=== PATIENT | male | born 2005 | race Caucasian/White ===

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

== ENCOUNTER 2023-06-26 13:00 | Emergency (ER) | payer OTHER ==
[2023-06-26 13:06] VITALS: BP 126/61; PULSE 68; RESP 18; TEMP 98.5; BMI 34.8
[2023-06-26 14:18] LABS: BASO % 0.7 % (0-2.0); EOS % 4.1 % (0-4.5); HEMATOCRIT 43.9 % (35.4-49); LYMPH % 7.5 % (8-40); MCH 31.3 pg (25.7-33.7); MCHC 34.2 g/dl (32.0-35.9); MEAN CELL VOLUME 91.3 fl (80-96); MEAN PLT VOLUME 8.8 fl (7.5-11.1); MONO % 5.8 % (3.8-10.2); NEUT % 81.9 % (42.8-82.8); PLATELET COUNT 204 10^3/uL (134-434); RBC 4.81 M/mm3 (4.00-5.60); RDW 13.4 % (11.9-15.9); WHITE BLOOD COUNT 7.3 K/mm3 (4.0-10.0)
[2023-06-26 14:54] LABS: POTASSIUM 4.1 mmol/L (3.5-5.1)
[2023-06-26 14:56] LABS: CALCIUM 9.3 mg/dL (8.5-10.1)
[2023-06-26 14:57] LABS: ALBUMIN 3.8 g/dl (3.4-5.0); BLOOD UREA NITROGEN 6.5 mg/dL (7-18)
[2023-06-26 15:00] LABS: BILIRUBIN,DIRECT 0.3 mg/dL (0.0-0.2); CREATININE 0.7 mg/dL (0.55-1.3)
[2023-06-26 15:02] LABS: BILIRUBIN,TOTAL 1.7 mg/dL (0.2-1); TOT PROT 7.2 g/dl (6.4-8.2)
[2023-06-26] MEDS ORDERED: ALBUTEROL SO4 2.5/IPRATROPIUM 0.5 INH SOL 3 ML VIAL.NEB. NEB ONE (18:11)
== END 2023-06-26 16:16 | disposition home or self-care (01) ==
LOC: JER 13:00
DX: R10.32 Left lower quadrant pain (principal); K52.9 Noninfective gastroenteritis and colitis, unspecified
CPT/HCPCS: 36415; 74177-TC; 80048; 80076; 85025; 99285-25

== ENCOUNTER 2023-06-28 23:40 | Observation (INO) | payer OTHER ==
[2023-06-28 23:47] VITALS: BMI 33.9
[2023-06-29] MEDS ORDERED: FAMOTIDINE 20 MG/50 ML IVPB 20 MG/50 ML MG IVPB ONE (00:43)
[2023-06-29] MEDS ORDERED: ACETAMINOPHEN INJECTION 100 ML IVPB ONE (00:43)
[2023-06-29] MEDS ORDERED: ONDANSETRON 4 MG/2 ML VIAL ONE ×3 (00:43→14:16)
[2023-06-29] MEDS ORDERED: MAG HYDROX/AL HYDROX/SIMETH 30 ML UNIT-DOSE CUP ONE (00:43)
[2023-06-29 00:56] LABS: HEMATOCRIT 43.9 % (35.4-49); HEMOGLOBIN 15.5 GM/dL (11.7-16.9); MCH 31.4 pg (25.7-33.7); MCHC 35.3 g/dl (32.0-35.9); MEAN CELL VOLUME 88.9 fl (80-96); MEAN PLT VOLUME 8.2 fl (7.5-11.1); PLATELET COUNT 206 10^3/uL (134-434); RBC 4.94 M/mm3 (4.00-5.60); RDW 13.1 % (11.9-15.9); WHITE BLOOD COUNT 8.1 K/mm3 (4.0-10.0)
[2023-06-29] MEDS: MAG HYDROX/AL HYDROX/SIMETH 30 ML UNIT-DOSE CUP PO ONE (01:02)
[2023-06-29] MEDS: ONDANSETRON 4 MG/2 ML VIAL IVPUSH ONE (01:02)
[2023-06-29] MEDS: FAMOTIDINE 20 MG/50 ML IVPB 20 MG/50 ML MG IVPB ONE (01:02)
[2023-06-29] MEDS: SODIUM CHLORIDE 0.9% 500 ML INFUS.BAG IV ONE (01:02)
[2023-06-29] MEDS: ACETAMINOPHEN 1000 MG/100 ML BAG IVPB ONE (01:02)
[2023-06-29 01:21] LABS: EPI CELLS 18 /uL (0-25.1); HYALINE CASTS 3 /uL (0-3.1); URINE APPEARANCE CLEAR; URINE BACTERIA 0 /uL (0-1359); URINE BILIRUBIN 1+ (NEGATIVE); URINE COLOR DK YELLOW; URINE GLUCOSE (UA) NEGATIVE (NEGATIVE); URINE KETONE 4+ (NEGATIVE); URINE LEUK ESTERASE NEGATIVE (NEGATIVE); URINE NITRITE NEGATIVE (NEGATIVE); URINE PROTEIN 4+ (NEGATIVE); URINE RBC 36 /uL (0-23.9); URINE WBC 22 /uL (0-25.8)
[2023-06-29 01:22] LABS: POTASSIUM 3.8 mmol/L (3.5-5.1)
[2023-06-29 01:25] LABS: ALBUMIN 3.8 g/dl (3.4-5.0); BLOOD UREA NITROGEN 10.4 mg/dL (7-18); CALCIUM 9.4 mg/dL (8.5-10.1)
[2023-06-29 01:27] LABS: CREATININE 0.6 mg/dL (0.55-1.3)
[2023-06-29 01:30] LABS: BILIRUBIN,TOTAL 2.6 mg/dL (0.2-1); TOT PROT 7.4 g/dl (6.4-8.2)
[2023-06-29 01:36] LABS: INR 1.62 (0.83-1.09); PROTHROMBIN TIME (PATIENT) 18.7 SEC (9.7-13.0)
[2023-06-29 01:39] LABS: ACTIVATED PTT 36.8 SECONDS (25.2-36.5)
[2023-06-29 03:15] LABS: ANISOCYTOSIS 1+; MACROCYTOSIS 0
[2023-06-29 04:15] LABS: MAGNESIUM 2.1 mg/dL (1.8-2.4)
[2023-06-29 04:20] LABS: PHOSPHOROUS 2.2 mg/dL (2.5-4.9)
[2023-06-29] MEDS: SODIUM CHLORIDE 1,000 ML IV SCH (05:24)
[2023-06-29] MEDS: ONDANSETRON 4 MG/2 ML VIAL IVPUSH PRN (06:13)
[2023-06-29 07:26] LABS: BASO % 0.4 % (0-2.0); EOS % 0.7 % (0-4.5); HEMATOCRIT 41.4 % (35.4-49); HEMOGLOBIN 14.6 GM/dL (11.7-16.9); LYMPH % 6.4 % (8-40); MCH 31.6 pg (25.7-33.7); MCHC 35.3 g/dl (32.0-35.9); MEAN CELL VOLUME 89.5 fl (80-96); MEAN PLT VOLUME 8.9 fl (7.5-11.1); MONO % 6.7 % (3.8-10.2); NEUT % 85.8 % (42.8-82.8); PLATELET COUNT 196 10^3/uL (134-434); RBC 4.63 M/mm3 (4.00-5.60); RDW 13.2 % (11.9-15.9); WHITE BLOOD COUNT 7.6 K/mm3 (4.0-10.0)
[2023-06-29 07:45] LABS: CHLORIDE 104 mmol/L (98-107); POTASSIUM 3.7 mmol/L (3.5-5.1); SODIUM 138 mmol/L (136-145)
[2023-06-29 07:59] LABS: ANION GAP 8 mmol/L (4-13); BLOOD UREA NITROGEN 9.3 mg/dL (7-18); CALCIUM 8.9 mg/dL (8.5-10.1); CO2 26 mmol/L (21-32)
[2023-06-29 08:00] LABS: ALBUMIN 3.7 g/dl (3.4-5.0); GLUCOSE,RANDOM 92 mg/dL (74-106); MAGNESIUM 2.1 mg/dL (1.8-2.4)
[2023-06-29 08:02] LABS: PHOSPHOROUS 3.5 mg/dL (2.5-4.9)
[2023-06-29 08:03] LABS: CREATININE 0.5 mg/dL (0.55-1.3); SGOT/AST 28 U/L (15-37)
[2023-06-29 08:04] LABS: BILIRUBIN,TOTAL 2.3 mg/dL (0.2-1); SGPT/ALT 46 U/L (13-61); TOT PROT 6.9 g/dl (6.4-8.2)
[2023-06-29 08:10] LABS: ALK PHOS 121 U/L (45-117)
[2023-06-29 08:52] LABS: HIV INTERPRETATION NEGATIVE (NEGATIVE)
[2023-06-29] MEDS ORDERED: PANTOPRAZOLE SODIUM 40 MG VIAL ONE (11:41)
[2023-06-29] MEDS ORDERED: NAPH,MB-DB/K PH,MBDB POWDER PACKET ONE (11:41)
[2023-06-29 13:23] LABS: GAMMA GLUTAMYL TRANSPEPTIDASE 30 U/L (5-85)
[2023-06-29 13:26] LABS: BILIRUBIN,DIRECT 0.7 mg/dL (0.0-0.2)
[2023-06-29] MEDS: PANTOPRAZOLE SODIUM 40 MG VIAL IVPUSH SCH (14:00)
[2023-06-29] MEDS: NAPH,MB-DB/K PH,MBDB POWDER PACKET PO ONE (14:10)
[2023-06-29 14:47] LABS: METHADONE, UR NEGATIVE (NEGATIVE); OPIATES, URI NEGATIVE (NEGATIVE); PHENCYCLIDINE,URINE NEGATIVE (NEGATIVE); URINE BARBITURATES NEGATIVE (NEGATIVE)
[2023-06-29 14:48] LABS: COCAINE, UR NEGATIVE (NEGATIVE)
[2023-06-29 14:49] LABS: URINE AMPHETAMINES NEGATIVE (NEGATIVE); URINE BENZODIAZEPINES NEGATIVE (NEGATIVE)
[2023-06-30] MEDS: ACETAMINOPHEN 1000 MG/100 ML BAG IVPB PRN (03:00)
[2023-06-30 09:13] LABS: BASO % 0.6 % (0-2.0); EOS % 3.9 % (0-4.5); HEMATOCRIT 44.9 % (35.4-49); HEMOGLOBIN 15.5 GM/dL (11.7-16.9); LYMPH % 13.3 % (8-40); MCH 31.3 pg (25.7-33.7); MCHC 34.6 g/dl (32.0-35.9); MEAN CELL VOLUME 90.5 fl (80-96); MEAN PLT VOLUME 8.7 fl (7.5-11.1); MONO % 7.6 % (3.8-10.2); NEUT % 74.6 % (42.8-82.8); PLATELET COUNT 209 10^3/uL (134-434); RBC 4.97 M/mm3 (4.00-5.60); RDW 13.4 % (11.9-15.9)
[2023-06-30 09:44] LABS: POTASSIUM 4.1 mmol/L (3.5-5.1)
[2023-06-30 09:46] LABS: ALBUMIN 3.8 g/dl (3.4-5.0); BLOOD UREA NITROGEN 12.2 mg/dL (7-18); CALCIUM 8.9 mg/dL (8.5-10.1); MAGNESIUM 2.1 mg/dL (1.8-2.4)
[2023-06-30 09:50] LABS: CREATININE 0.7 mg/dL (0.55-1.3)
[2023-06-30] MEDS: KETOROLAC TROMETHAMINE 15 MG/ML VIAL IVPUSH PRN (11:43)
[2023-06-30] MEDS: PANTOPRAZOLE 20 MG TABLET PO SCH (14:28)
[2023-06-30 14:41] LABS: BILIRUBIN,DIRECT 1.3 mg/dL (0.0-0.2)
[2023-07-01 09:19] LABS: INR 1.61 (0.83-1.09); PROTHROMBIN TIME (PATIENT) 18.6 SEC (9.7-13.0)
[2023-07-01 09:26] LABS: BASO % 0.6 % (0-2.0); EOS % 5.2 % (0-4.5); HEMATOCRIT 44.9 % (35.4-49); HEMOGLOBIN 15.8 GM/dL (11.7-16.9); LYMPH % 6.7 % (8-40); MCH 31.7 pg (25.7-33.7); MCHC 35.1 g/dl (32.0-35.9); MEAN CELL VOLUME 90.1 fl (80-96); MEAN PLT VOLUME 8.5 fl (7.5-11.1); NEUT % 80.5 % (42.8-82.8); PLATELET COUNT 210 10^3/uL (134-434); RBC 4.98 M/mm3 (4.00-5.60); RDW 13.2 % (11.9-15.9); RETICULOCYTES 2.15 % (0.5-1.5); WHITE BLOOD COUNT 7.5 K/mm3 (4.0-10.0)
[2023-07-01 09:41] LABS: POTASSIUM 3.7 mmol/L (3.5-5.1)
[2023-07-01 09:42] LABS: CALCIUM 9.1 mg/dL (8.5-10.1)
[2023-07-01 09:44] LABS: ALBUMIN 3.8 g/dl (3.4-5.0); MAGNESIUM 2.3 mg/dL (1.8-2.4)
[2023-07-01 09:47] LABS: CREATININE 0.7 mg/dL (0.55-1.3)
[2023-07-01 09:48] LABS: BILIRUBIN,TOTAL 2.7 mg/dL (0.2-1); TOT PROT 7.2 g/dl (6.4-8.2)
[2023-07-01 12:23] LABS: BILIRUBIN,DIRECT 0.9 mg/dL (0.0-0.2)
[2023-07-01] MEDS: SUCRALFATE 1 GM TABLET (FP) PO SCH (14:00)
[2023-07-02 08:11] LABS: HEMATOCRIT 42.1 % (35.4-49); HEMOGLOBIN 14.6 GM/dL (11.7-16.9); MCH 31.3 pg (25.7-33.7); MCHC 34.6 g/dl (32.0-35.9); MEAN CELL VOLUME 90.3 fl (80-96); MEAN PLT VOLUME 8.7 fl (7.5-11.1); PLATELET COUNT 200 10^3/uL (134-434); RBC 4.66 M/mm3 (4.00-5.60); RDW 12.9 % (11.9-15.9)
[2023-07-02 08:23] LABS: INR 1.7 (0.83-1.09); PROTHROMBIN TIME (PATIENT) 19.6 SEC (9.7-13.0)
[2023-07-02 08:26] LABS: POTASSIUM 3.7 mmol/L (3.5-5.1)
[2023-07-02 08:38] LABS: ALBUMIN 3.4 g/dl (3.4-5.0); BLOOD UREA NITROGEN 15.8 mg/dL (7-18)
[2023-07-02 08:41] LABS: BILIRUBIN,DIRECT 0.6 mg/dL (0.0-0.2); CREATININE 0.6 mg/dL (0.55-1.3); TOT PROT 6.6 g/dl (6.4-8.2)
[2023-07-02 08:42] LABS: BILIRUBIN,TOTAL 1.9 mg/dL (0.2-1)
[2023-07-02 18:07] LABS: ALPHA-1-ANTITRYPSIN 199 mg/dL (95-164)
[2023-07-04 11:30] LABS: BASO % 0.7 % (0-2.0); HEMATOCRIT 41.1 % (35.4-49); HEMOGLOBIN 14.2 GM/dL (11.7-16.9); LYMPH % 6.4 % (8-40); MCH 30.8 pg (25.7-33.7); MCHC 34.6 g/dl (32.0-35.9); MEAN CELL VOLUME 88.9 fl (80-96); MEAN PLT VOLUME 9.1 fl (7.5-11.1); NEUT % 78.9 % (42.8-82.8); PLATELET COUNT 214 10^3/uL (134-434); RBC 4.63 M/mm3 (4.00-5.60); WHITE BLOOD COUNT 7.9 K/mm3 (4.0-10.0)
[2023-07-04 11:33] LABS: INR 1.66 (0.83-1.09); PROTHROMBIN TIME (PATIENT) 19.2 SEC (9.7-13.0)
[2023-07-04 11:53] LABS: POTASSIUM 3.2 mmol/L (3.5-5.1)
[2023-07-04 11:55] LABS: ALBUMIN 3.4 g/dl (3.4-5.0); CALCIUM 8.5 mg/dL (8.5-10.1)
[2023-07-04 11:56] LABS: BLOOD UREA NITROGEN 14.3 mg/dL (7-18)
[2023-07-04 11:58] LABS: CREATININE 0.6 mg/dL (0.55-1.3)
[2023-07-04 12:00] LABS: BILIRUBIN,TOTAL 1.5 mg/dL (0.2-1); TOT PROT 6.7 g/dl (6.4-8.2)
[2023-07-04] MEDS: POTASSIUM CHLORIDE TABS 20 MEQ TABLET.ER (FP) PO SCH (13:09)
[2023-07-04 14:40] VITALS: RESP 18
[2023-07-04] MEDS: LIDOCAINE 4% PATCH TP SCH (19:12)
[2023-07-04] MEDS: LIDOCAINE PATCH REMOVAL MC SCH (21:46)
[2023-07-05 09:29] LABS: HEMATOCRIT 37.9 % (35.4-49); HEMOGLOBIN 13.3 GM/dL (11.7-16.9); MCH 31.4 pg (25.7-33.7); MCHC 35.1 g/dl (32.0-35.9); MEAN CELL VOLUME 89.5 fl (80-96); MEAN PLT VOLUME 8.9 fl (7.5-11.1); PLATELET COUNT 201 10^3/uL (134-434); RBC 4.23 M/mm3 (4.00-5.60); RDW 12.8 % (11.9-15.9); WHITE BLOOD COUNT 6.1 K/mm3 (4.0-10.0)
[2023-07-05 09:45] LABS: POTASSIUM 3.4 mmol/L (3.5-5.1)
[2023-07-05 09:55] LABS: CALCIUM 8.8 mg/dL (8.5-10.1)
[2023-07-05 09:56] LABS: ALBUMIN 3.2 g/dl (3.4-5.0)
[2023-07-05 09:57] LABS: BLOOD UREA NITROGEN 12.3 mg/dL (7-18); CREATININE 0.6 mg/dL (0.55-1.3)
[2023-07-05 09:59] LABS: TOT PROT 6.1 g/dl (6.4-8.2)
[2023-07-05 10:01] LABS: BILIRUBIN,TOTAL 1.4 mg/dL (0.2-1)
[2023-07-05 14:52] VITALS: BP 129/62; PULSE 91; TEMP 98.1
[2023-07-05 14:53] LABS: EPI CELLS 5 /uL (0-25.1); HYALINE CASTS 1 /uL (0-3.1); URINE APPEARANCE CLEAR; URINE BACTERIA 3 /uL (0-1359); URINE BILIRUBIN 1+ (NEGATIVE); URINE COLOR DK YELLOW; URINE GLUCOSE (UA) NEGATIVE (NEGATIVE); URINE KETONE 1+ (NEGATIVE); URINE LEUK ESTERASE NEGATIVE (NEGATIVE); URINE NITRITE NEGATIVE (NEGATIVE); URINE PROTEIN 2+ (NEGATIVE); URINE RBC 21 /uL (0-23.9); URINE WBC 27 /uL (0-25.8)
[2023-07-08 07:10] LABS: FREE KAP CHN UR 278.15 mg/L (1.17-86.46); KAPPA LAMBDA RATIO URIN 3.85 (1.83-14.26)
== END 2023-07-05 16:22 | disposition home or self-care (01) ==
LOC: JER 23:40 → JERBED 06-29 03:01 → J8W 06-29 18:05
PROVIDERS: ADMIT Internal Medicine; ATTEND Nurse Practitioner Acute Care
PROC: 3E033GC Introduction of Other Therapeutic Substance into Peripheral Vein, Percutaneous Approach (ICD-10-PCS; principal; 2023-06-29)
PROC: 3E023NZ Introduction of Analgesics, Hypnotics, Sedatives into Muscle, Percutaneous Approach (ICD-10-PCS; 2023-06-29)
PROC: 3E0337Z Introduction of Electrolytic and Water Balance Substance into Peripheral Vein, Percutaneous Approach (ICD-10-PCS; 2023-06-29)
PROC: 0DB98ZX Excision of Duodenum, Via Natural or Artificial Opening Endoscopic, Diagnostic (ICD-10-PCS; 2023-07-01)
PROC: 0DB78ZX Excision of Stomach, Pylorus, Via Natural or Artificial Opening Endoscopic, Diagnostic (ICD-10-PCS; 2023-07-01)
PROC: 0DB68ZX Excision of Stomach, Via Natural or Artificial Opening Endoscopic, Diagnostic (ICD-10-PCS; 2023-07-01)
DX: K29.60 Other gastritis without bleeding (principal); K52.9 Noninfective gastroenteritis and colitis, unspecified; R16.1 Splenomegaly, not elsewhere classified; K62.89 Other specified diseases of anus and rectum; R80.9 Proteinuria, unspecified; R10.9 Unspecified abdominal pain; E80.6 Other disorders of bilirubin metabolism; R74.01 Elevation of levels of liver transaminase levels; R76.8 Other specified abnormal immunological findings in serum; E80.7 Disorder of bilirubin metabolism, unspecified; Z29.89 Encounter for other specified prophylactic measures
CPT/HCPCS: 36415; 71045-TC-FY; 74177-TC; 74181-TC; 76705-TC; 80053; 80076; 80307; 81003; 82103; 82248; 82272; 82550; 82728; 82977; 83010; 83516; 83540; 83550; 83605; 83615; 83690; 83735; 83883; 83993; 84100; 84156; 85025; 85027; 85045; 85384; 85610; 85651; 85730; 86038; 86140; 86704; 86706; 86708; 86709; 86803; 86850; 86870; 86880; 86900; 86901; 86902; 87040; 87045; 87046; 87086; 87209; 87324; 87340; 87389; 87449; 87517; 87798; 88305-TC; 88342-TC; 93005; 93010; 96365; 96372; 96375; 96376; 99285-25; G0378; J0131; Q9967

== ENCOUNTER 2023-07-15 14:37 | Emergency (ER) | payer OTHER ==
[2023-07-15 14:41] VITALS: RESP 18; TEMP 98.4; BMI 31.8
[2023-07-15] MEDS ORDERED: ACETAMINOPHEN INJECTION 100 ML IVPB ONE (15:25)
[2023-07-15] MEDS ORDERED: ONDANSETRON 4 MG/2 ML VIAL ONE (15:25)
[2023-07-15] MEDS ORDERED: FAMOTIDINE 20 MG/50 ML IVPB 20 MG/50 ML MG IVPB ONE (15:25)
[2023-07-15] MEDS: LACTATED RINGERS SOLUTION 1000 ML INFUS.BAG IV ONE (15:50)
[2023-07-15] MEDS: ACETAMINOPHEN 1000 MG/100 ML BAG IVPB ONE (15:50)
[2023-07-15] MEDS: FAMOTIDINE 20 MG/50 ML IVPB 20 MG/50 ML MG IVPB ONE (15:51)
[2023-07-15] MEDS: ONDANSETRON 4 MG/2 ML VIAL IVPUSH ONE (15:51)
[2023-07-15 15:57] LABS: BASO % 0.5 % (0-2.0); EOS % 2.2 % (0-4.5); HEMATOCRIT 41.6 % (35.4-49); HEMOGLOBIN 14.4 GM/dL (11.7-16.9); LYMPH % 11.8 % (8-40); MCH 30.8 pg (25.7-33.7); MCHC 34.7 g/dl (32.0-35.9); MEAN PLT VOLUME 8.4 fl (7.5-11.1); MONO % 8.3 % (3.8-10.2); NEUT % 77.2 % (42.8-82.8); PLATELET COUNT 199 10^3/uL (134-434); RBC 4.67 M/mm3 (4.00-5.60); RDW 13.4 % (11.9-15.9); WHITE BLOOD COUNT 5.1 K/mm3 (4.0-10.0)
[2023-07-15 16:16] LABS: POTASSIUM 3.9 mmol/L (3.5-5.1)
[2023-07-15 16:17] LABS: CALCIUM 9.4 mg/dL (8.5-10.1)
[2023-07-15 16:18] LABS: ALBUMIN 3.6 g/dl (3.4-5.0); BLOOD UREA NITROGEN 12.7 mg/dL (7-18); MAGNESIUM 2.2 mg/dL (1.8-2.4)
[2023-07-15 16:21] LABS: CREATININE 0.6 mg/dL (0.55-1.3)
[2023-07-15 16:22] LABS: BILIRUBIN,TOTAL 1.6 mg/dL (0.2-1); TOT PROT 6.9 g/dl (6.4-8.2)
[2023-07-15] MEDS ORDERED: PANTOPRAZOLE SODIUM 40 MG/100 ML BAG IVPB ONE (16:51)
[2023-07-15] MEDS: PANTOPRAZOLE SODIUM 40 MG VIAL IVPUSH ONE (16:58)
[2023-07-15 17:12] VITALS: BP 100/60; PULSE 74
== END 2023-07-15 17:12 | disposition home or self-care (01) ==
LOC: JER 14:37
PROC: 3E033GC Introduction of Other Therapeutic Substance into Peripheral Vein, Percutaneous Approach (ICD-10-PCS; principal; 2023-07-15)
PROC: 3E030NZ Introduction of Analgesics, Hypnotics, Sedatives into Peripheral Vein, Open Approach (ICD-10-PCS; 2023-07-15)
PROC: 3E030GC Introduction of Other Therapeutic Substance into Peripheral Vein, Open Approach (ICD-10-PCS; 2023-07-15)
PROC: 3E030GC Introduction of Other Therapeutic Substance into Peripheral Vein, Open Approach (ICD-10-PCS; 2023-07-15)
DX: R11.2 Nausea with vomiting, unspecified (principal); R10.9 Unspecified abdominal pain; K29.70 Gastritis, unspecified, without bleeding
CPT/HCPCS: 36415; 76700-TC; 80053; 83690; 83735; 85025; 99284-25; J0131

== ENCOUNTER 2024-03-30 19:03 | Emergency (ER) | payer OTHER ==
[2024-03-30 19:11] VITALS: BP 137/64; PULSE 71; RESP 18; TEMP 98.3; BMI 35.9
[2024-03-30] MEDS ORDERED: METOCLOPRAMIDE HCL INJECTION 10 MG/2 ML VIAL ONE (20:12)
[2024-03-30] MEDS ORDERED: ACETAMINOPHEN INJECTION 100 ML ONE (20:12)
[2024-03-30] MEDS: ACETAMINOPHEN 1000 MG/100 ML BAG IVPB ONE (20:25)
[2024-03-30] MEDS: SODIUM CHLORIDE 0.9% 1000 ML INFUS.BAG IV ONE (20:25)
[2024-03-30] MEDS: KETOROLAC TROMETHAMINE 30 MG/1 ML VIAL IVPUSH ONE (20:25)
[2024-03-30] MEDS: METOCLOPRAMIDE HCL INJECTION 10 MG/2 ML VIAL IVPB ONE (20:25)
[2024-03-30 20:30] LABS: BASO % 0.3 % (0-2.0); EOS % 0.2 % (0-4.5); HEMATOCRIT 44.5 % (35.4-49); HEMOGLOBIN 15.6 GM/dL (11.7-16.9); LYMPH % 4.6 % (8-40); MCHC 35.1 g/dl (32.0-35.9); MEAN CELL VOLUME 88.3 fl (80-96); MEAN PLT VOLUME 8.1 fl (7.5-11.1); MONO % 5.5 % (3.8-10.2); NEUT % 89.4 % (42.8-82.8); PLATELET COUNT 256 10^3/uL (134-434); RBC 5.04 M/mm3 (4.00-5.60); RDW 14.3 % (11.9-15.9); WHITE BLOOD COUNT 10.6 K/mm3 (4.0-10.0)
[2024-03-30 20:53] LABS: POTASSIUM 3.6 mmol/L (3.5-5.1)
[2024-03-30 20:54] LABS: BLOOD UREA NITROGEN 13.5 mg/dL (7-18); CALCIUM 9.4 mg/dL (8.5-10.1)
[2024-03-30 20:58] LABS: CREATININE 0.7 mg/dL (0.55-1.3)
[2024-03-30] MEDS: KETOROLAC TROMETHAMINE 15 MG/ML VIAL IVPUSH ONE (22:49)
[2024-03-30] MEDS ORDERED: KETOROLAC TROMETHAMINE 15 MG/ML VIAL ONE (22:54)
== END 2024-03-30 23:40 | disposition home or self-care (01) ==
LOC: JER 19:03
PROC: 3E033NZ Introduction of Analgesics, Hypnotics, Sedatives into Peripheral Vein, Percutaneous Approach (ICD-10-PCS; principal; 2024-03-30)
PROC: 3E0333Z Introduction of Anti-inflammatory into Peripheral Vein, Percutaneous Approach (ICD-10-PCS; 2024-03-30)
PROC: 3E033GC Introduction of Other Therapeutic Substance into Peripheral Vein, Percutaneous Approach (ICD-10-PCS; 2024-03-30)
DX: R51.9 Headache, unspecified (principal); R11.0 Nausea
CPT/HCPCS: 36415; 70450-TC; 80048; 85025; 99284-25; J0131